=== PATIENT | female | born 1960 | race Caucasian/White ===

== ENCOUNTER 2016-11-02 11:03 | Emergency (ER) | payer OTHER ==
[~2016-11-02] VITALS: Ht 160 cm; Wt 98.6 kg
[2016-11-02 11:26] LABS: MCH 29.6 PG (29.0-34.0); MCHC 33.7 G/DL (30.0-36.0); MEAN PLAT.VOLUME 10.4 uM^3 (9.5-12.4); PLATELET COUNT 308 K/uL (156-360); RBC DIS.WIDTH-CV 13.6 % (11.8-14.6); RBC DIS.WIDTH-SD 43.2 % (39-53); RED BLOOD COUNT 5.23 M/uL (3.80-5.20); WHITE BLOOD COUNT 11.4 K/uL (4.1-10.2)
[2016-11-02 11:39] LABS: CHLORIDE 105 mEq/L (99-109); SODIUM 143 mEq/L (136-147)
[2016-11-02 11:41] LABS: GLUCOSE 150 mg/dL (70-99)
[2016-11-02 11:42] LABS: ANION GAP 15 MEQ/L (2-14)
[2016-11-02 11:43] LABS: TOTAL BILIRUBIN 0.5 mg/dL (0.0-1.0)
[2016-11-02 11:45] LABS: ALKALINE PHOSPHATASE 106 IU/L (3-129); GFR ESTIMATE (CALCULATED) > 59 mL/min/
[2016-11-02 11:46] LABS: UREA NITROGEN (BUN) 14 mg/dL (9-23)
[2016-11-02 11:55] LABS: QUANTITATIVE HCG < 4.0 MIU/ML
[2016-11-02] MEDS ORDERED: OMEPRAZOLE20 MG PO (12:43)
[2016-11-02] MEDS ORDERED: VALSARTAN-HCTZ1 EACH PO (12:44)
[2016-11-02] MEDS ORDERED: ZYRTEC10 M2 PO (12:44)
[2016-11-02] MEDS ORDERED: MONTELUKAST SOD10 MG PO (12:44)
[2016-11-02] MEDS ORDERED: LANTUS 10100 UNITS/ SC (12:45)
[2016-11-02] MEDS ORDERED: METFORMIN HCL500 M1 PO (12:45)
[2016-11-02] MEDS ORDERED: INVOKANA300 MG PO (12:45)
[2016-11-02] MEDS ORDERED: TANZEUM50 MG/0.5 SC (12:45)
[2016-11-02] MEDS ORDERED: SIMVASTATIN40 MG PO (12:46)
[2016-11-02] MEDS ORDERED: LO-DOSE ASPIRIN81 M2 PO (12:46)
[2016-11-02] MEDS ORDERED: MAGNESIUM-VIT1 EACH PO (12:47)
[2016-11-02] MEDS ORDERED: GLUCOSAMINE-CH1 EA47 PO (12:47)
[2016-11-02 13:30] LABS: ADD MIUA? NO; BILIRUBIN NEGATIVE; BLOOD NEGATIVE; COLOR PALE STRAW ((YELLOW)); GLUCOSE (STRIP) >=1000; KETONES NEGATIVE; LEUKOCYTES NEGATIVE; NITRITE NEGATIVE; PH, URINE 6.5 (5-8); PROTEIN (STRIP) NEGATIVE; SPECIFIC GRAVITY 1.014 (1.000-1.030); UCUL ADDED? NO; UROBILINOGEN 0.2 MG/DL (0.2-1.0)
[2016-11-02] MEDS ORDERED: BENTYL20 MG PO (16:19)
[2016-11-02 16:36] VITALS: BP 119/73
== END 2016-11-02 16:36 | disposition home or self-care (01) ==
LOC: EME 11:03
DX: R10.11 Right upper quadrant pain (principal); E11.65 Type 2 diabetes mellitus with hyperglycemia; R81 Glycosuria; K76.0 Fatty (change of) liver, not elsewhere classified; B34.9 Viral infection, unspecified; E78.5 Hyperlipidemia, unspecified; I10 Essential (primary) hypertension; Z79.84 Long term (current) use of oral hypoglycemic drugs
CPT/HCPCS: 74020; 76705; 80053; 81003; 84702; 85027; 99281; 99284; J1885

== ENCOUNTER → 2017-10-07 | Outpatient (CLI) | payer OTHER ==
[~2017-10-07] MED LIST: BENTYL20 MG PO; GLUCOSAMINE-CH1 EA47 PO; INVOKANA300 MG PO; LANTUS 10100 UNITS/ SC; LO-DOSE ASPIRIN81 M2 PO; MAGNESIUM-VIT1 EACH PO; METFORMIN HCL500 M1 PO; MONTELUKAST SOD10 MG PO; OMEPRAZOLE20 MG PO; SIMVASTATIN40 MG PO; TANZEUM50 MG/0.5 SC; VALSARTAN-HCTZ1 EACH PO; ZYRTEC10 M2 PO
== END | disposition home or self-care (01) ==
LOC: CDC 13:13
DX: Z01.810 Encounter for preprocedural cardiovascular examination (principal)
CPT/HCPCS: 93000

== ENCOUNTER 2017-10-21 05:38 | Day surgery (SDC) | payer OTHER ==
[~2017-10-21] VITALS: Ht 160 cm; Wt 99.4 kg
[~2017-10-21 05:38] MED LIST changes: +AMARYL1 MG PO; +DAILY VALUE1 EACH PO; +FLONASE16 G1 BOTH NARES; +JARDIANCE25 MG PO; +TRESIBA FL200 UNIT/1 SC; +TRULICITY1.5 MG/0.5 SC
[2017-10-21 07:01] VITALS: BP 123/72
[2017-10-21 09:11] VITALS: BP 138/66
[2017-10-21 09:52] VITALS: BP 118/74
== END 2017-10-21 09:30 | disposition home or self-care (01) ==
LOC: SDC 05:38
PROVIDERS: Obstetrics & Gynecology
DX: N95.0 Postmenopausal bleeding (principal); N84.0 Polyp of corpus uteri; D25.9 Leiomyoma of uterus, unspecified; E11.65 Type 2 diabetes mellitus with hyperglycemia; E11.40 Type 2 diabetes mellitus with diabetic neuropathy, unspecified; K21.9 Gastro-esophageal reflux disease without esophagitis; E78.00 Pure hypercholesterolemia, unspecified; I10 Essential (primary) hypertension; E66.9 Obesity, unspecified; Z68.38 Body mass index [BMI] 38.0-38.9, adult; Z98.51 Tubal ligation status; Z79.82 Long term (current) use of aspirin; Z79.4 Long term (current) use of insulin; Z83.3 Family history of diabetes mellitus; Z82.49 Family history of ischemic heart disease and other diseases of the circulatory system; Z82.3 Family history of stroke; Z80.3 Family history of malignant neoplasm of breast; Z88.5 Allergy status to narcotic agent; Z91.040 Latex allergy status
CPT/HCPCS: 82948; 88305; J0131; J0330; J0690; J1100; J1885; J2250; J3010